=== PATIENT | male | born 1945 | race Caucasian/White ===

== ENCOUNTER 2019-01-03 07:57 | Outpatient (CLI) | payer MEDICARE, BC ==
[~2019-01-03 07:57] MED LIST: ASPI325T17 PO; INSU100C SQ-INSULIN; INSU100V8 SQ; MULT-717 PO; OLME20TA17 PO; SAW450CA7 PO; SIMV40TA3 PO
[2019-01-03] MEDS ORDERED: UMEC1DIS INH (08:28)
[2019-01-03] MEDS ORDERED: METF500T17 PO (08:28)
[2019-01-03] MEDS ORDERED: LOSA25TA25 PO (08:28)
[2019-01-03] MEDS ORDERED: INSU100V35 SC (08:28)
[2019-01-03] MEDS ORDERED: INSU100C5 SQ-INSULIN (08:28)
[2019-01-03 08:49] LABS: BASOPHILS # (AUTO) 0.08 x10^3/uL (0-0.1); BASOPHILS % (AUTO) 1 % (0-1); EOSINOPHILS # (AUTO) 0.44 x10^3/uL (0-0.4); EOSINOPHILS % (AUTO) 5 % (1-7); LYMPHOCYTES # (AUTO) 1.94 x10^3/uL (1-3.4); LYMPHOCYTES % (AUTO) 20 % (22-44); MD NO; MEAN CORPUSCULAR HEMOGLOBIN 31.4 pg (27.5-34.5); MEAN CORPUSCULAR HGB CONC 33.1 g/dL (33.2-36.2); MEAN CORPUSCULAR VOLUME 94.9 fL (81-97); MEAN PLATELET VOLUME 7.9 fL (7.4-10.4); MONOCYTES % (AUTO) 8 % (2-9); NEUTROPHILS # (AUTO) 6.37 x10^3/uL (1.8-6.8); NEUTROPHILS % (AUTO) 66 % (42-75); PLATELET COUNT 241 x10^3/uL (130-400); RED BLOOD COUNT 4.61 x10^6/uL (4.38-5.82); RED CELL DISTRIBUTION WIDTH 13.6 % (9.4-14.8)
[2019-01-03 08:56] LABS: ANION GAP 8 mmol/L (5-15); CALCIUM 8.9 mg/dL (8.5-10.1); CHLORIDE 111 mmol/L (98-107); CREATININE 1.28 mg/dL (0.7-1.3)
== END 2019-01-03 23:59 | disposition home or self-care (01) ==
LOC: STAR 07:57
PROVIDERS: ATTEND Internal Medicine Cardiovascular Disease
DX: I25.10 Atherosclerotic heart disease of native coronary artery without angina pectoris (principal); R06.02 Shortness of breath
CPT/HCPCS: 36415; 80048; 85025

== ENCOUNTER 2019-01-08 09:57 | Day surgery (SDC) | payer MEDICARE, BC ==
[2019-01-03 08:22] VITALS: BP 121/67
[~2019-01-08] VITALS: Ht 193 cm; Wt 100.0 kg
[~2019-01-08 09:57] MED LIST changes: +INSU100C5 SQ-INSULIN; +INSU100V35 SC; +LOSA25TA25 PO; +METF500T17 PO; +UMEC1DIS INH
[2019-01-08 10:51] VITALS: BP 113/84
[2019-01-08] MEDS ORDERED: FENTANYL PF 100 MCG/2ML ONE ×3 (11:56→12:41)
[2019-01-08] MEDS ORDERED: NITROGLYCERIN 5 MG/ML, 10ML ONE (11:56)
[2019-01-08] MEDS ORDERED: BIVALIRUDIN 250 MG ONE (11:56)
[2019-01-08] MEDS ORDERED: VERAPAMIL 2.5 MG/ML, 2ML ONE (11:56)
[2019-01-08] MEDS ORDERED: TICAGRELOR 90 MG TABLET ONE (11:56)
[2019-01-08] MEDS ORDERED: MIDAZOLAM 1 MG/ML, 2ML ONE ×2 (11:57→12:39)
[2019-01-08] MEDS ORDERED: LIDOCAINE 2%, 20ML ONE (11:57)
[2019-01-08] MEDS ORDERED: HEPARIN 1,000 UNITS/ML, 10ML ONE (11:57)
[2019-01-08] MEDS ORDERED: SODIUM CHLORIDE 0.9% 1,000 ML IV SCH (13:12)
[2019-01-08] MEDS ORDERED: HYDROcodone/APAP 5/325 TABLET PO PRN (13:30)
== END 2019-01-08 15:59 | disposition home or self-care (01) ==
LOC: CACL 09:57
PROVIDERS: ATTEND Internal Medicine Cardiovascular Disease
DX: I25.10 Atherosclerotic heart disease of native coronary artery without angina pectoris (principal); E78.5 Hyperlipidemia, unspecified; E11.9 Type 2 diabetes mellitus without complications; Z87.891 Personal history of nicotine dependence; Z79.82 Long term (current) use of aspirin; Z87.01 Personal history of pneumonia (recurrent); Z98.61 Coronary angioplasty status
CPT/HCPCS: 93460; 99156; 99157; C1769; C1894; J1644; J2250; J3010; J3490; Q9967; J0583

== ENCOUNTER → 2019-02-21 | Outpatient (CLI) | payer MEDICARE, BC ==
[2019-02-21 11:50] LABS: ANION GAP 7 mmol/L (5-15); CALCIUM 9.2 mg/dL (8.5-10.1); CHLORIDE 110 mmol/L (98-107)
[2019-02-21 11:54] LABS: ALANINE AMINOTRANSFERASE 23 U/L (12-78); ALKALINE PHOSPHATASE 85 U/L (45-117); BILIRUBIN,TOTAL 0.7 mg/dL (0.2-1.0); CREATININE 1.37 mg/dL (0.7-1.3); TOTAL PROTEIN 8.1 g/dL (6.4-8.2)
== END | disposition home or self-care (01) ==
LOC: LAB 11:25
PROVIDERS: ATTEND Internal Medicine
DX: J84.10 Pulmonary fibrosis, unspecified (principal)
CPT/HCPCS: 36415; 80053; 82784; 82785; 86038; 86225; 86235; 86430